=== PATIENT | female | born 2000 ===

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

== ENCOUNTER 2021-02-05 11:39 | Inpatient (IN) ==
[2021-02-05] MEDS ORDERED: ONDANSETRON 4 MG/2 ML VIAL IV PRN ×2 (12:07→20:29)
[2021-02-05] MEDS ORDERED: LACTATED RINGERS 500 ML IV PRN (12:07)
[2021-02-05] MEDS ORDERED: LACTATED RINGERS 1,000 ML IV SCH (12:30)
[2021-02-05 12:45] LABS: Basophils % 0.4 % (0.0-0.8); Eosinophils # 0.1 10*3/uL (0.0-0.87); Eosinophils % 1.2 % (0.00-10.9); Hemoglobin 11.3 GM/DL (12.0-16.0); Immature Granulocytes % 0.4 %; Immature Granulocytes Absolute 0.02 #; Lymphocytes # 1.3 10*3/uL (1.4-4.0); Lymphocytes % 26.8 % (21.3-54.2); Mean Corpuscular HGB Conc 33.2 GM/DL (32-36); Mean Corpuscular Volume 85.4 FL (87-102); Mean Platelet Volume 12.2 FL (9.6-12.0); Monocytes % 9.1 % (1.7-12.7); Neutrophils % 62.1 % (38.7-73.9); Platelet Count 131 T/CUMM (130-400); Red Blood Count 3.98 MC/CUMM (3.8-5.5); Red Cell Distribution Width 14.5 % (9.3-17.3); White Blood Count 4.9 T/CUMM (4-12)
[2021-02-05 13:06] LABS: Alanine Aminotransferase 11 U/L (13-56); Albumin 2.3 G/DL (3.4-5.0); Alkaline Phosphatase 242 U/L (45-117); Aspartate Amino Transferase 15 U/L (0-37); Bilirubin,Total < 0.39 MG/DL (0.2-1.0); Blood Urea Nitrogen 8 MG/DL (7-18); Calcium 8.4 MG/DL (8.5-10.1); Carbon Dioxide 22 MMOL/L (21-32); Estimated Glom Filtration Rate 146 ML/MIN; Glucose 78 MG/DL (74-106); Osmolality,Calculated 279.1 MOS/KG (273-304); Potassium 3.7 MMOL/L (3.5-5.1); Sodium 142 MMOL/L (136-145)
[2021-02-05] MEDS ORDERED: OXYTOCIN/LR 20 UNIT/1,000 ML BAG IV SCH (14:00)
[2021-02-05] MEDS ORDERED: AMPICILLIN INJ 2,000 MG in SODIUM CHLORIDE 0.9% 100 ML IV ONE (17:15)
[2021-02-05] MEDS ORDERED: MEPERIDINE 50 MG/1 ML VIAL IV PRN (19:34)
[2021-02-05] MEDS ORDERED: OXYTOCIN/LR 20 UNIT/1,000 ML BAG IV ONE ×2 (19:46→20:29)
[2021-02-05] MEDS ORDERED: miSOPROStoL 200 MCG TABLET ONE (19:46)
[2021-02-05] MEDS ORDERED: TRANEXAMIC ACID 1,000 MG/10 ML VIAL ONE (19:46)
[2021-02-05] MEDS ORDERED: METHYLERGONOVINE 0.2 MG/1 ML AMP ONE (19:47)
[2021-02-05] MEDS ORDERED: CARBOPROST TROMETHAMINE 250 MCG/ML AMP IM ONE ×2 (19:47→20:20)
[2021-02-05] MEDS ORDERED: LIDOCAINE 1% 50 ML VIAL ONE (19:47)
[2021-02-05 20:24] LABS: Cord Venous Blood HCO3 21.7 MMOL/L; Cord Venous Blood PCO2 36.8 MMHG; Cord Venous Blood PO2 27.1
[2021-02-05] MEDS ORDERED: DIPH/TET/ACEL PERT BOOSTER VACCINE 0.5 ML VIAL IM ONE (20:29)
[2021-02-05] MEDS ORDERED: LANOLIN 50% CREAM 0.3 OZ TUBE TOP PRN (20:29)
[2021-02-05] MEDS ORDERED: RHO(D) IMMUNE GLOBULIN 300 MCG SYRINGE IM ONE (20:29)
[2021-02-05] MEDS ORDERED: IBUPROFEN 800 MG TABLET PO PRN (20:29)
[2021-02-05] MEDS ORDERED: BISACODYL 10 MG SUPP RECTAL PRN (20:29)
[2021-02-05] MEDS ORDERED: WITCH HAZEL PADS 100/JAR TOP PRN (20:29)
[2021-02-05] MEDS ORDERED: oxyCODONE/ACETAMINOPHEN 5-325 MG TABLET PO PRN ×2 (20:29)
[2021-02-05] MEDS ORDERED: BENZOCAINE 20%/MENTHOL 0.5% SPRAY 56 GM CAN TOP PRN (20:29)
[2021-02-05] MEDS ORDERED: HYDROCORTISONE 2.5% RECTAL CREAM 30 GM TUBE TOP PRN (20:29)
[2021-02-05] MEDS ORDERED: ACETAMINOPHEN 325 MG TABLET PO PRN (20:29)
[2021-02-05] MEDS ORDERED: MEASLES/MUMPS/RUBELLA VACCINE 0.5 ML VIAL SUBCUT ONE (20:29)
[2021-02-05] MEDS ORDERED: AMPICILLIN INJ 1,000 MG in SODIUM CHLORIDE 0.9% 100 ML IV SCH (21:15)
[2021-02-06 05:02] LABS: Basophils % 0.2 % (0.0-0.8); Eosinophils % 0.1 % (0.00-10.9); Hematocrit 33.4 VOL% (35.7-47.0); Hemoglobin 10.7 GM/DL (12.0-16.0); Immature Granulocytes % 0.5 %; Immature Granulocytes Absolute 0.06 #; Lymphocytes # 1.5 10*3/uL (1.4-4.0); Lymphocytes % 11.5 % (21.3-54.2); Mean Corpuscular Volume 87.2 FL (87-102); Mean Platelet Volume 12.7 FL (9.6-12.0); Neutrophils % 83.7 % (38.7-73.9); Platelet Count 137 T/CUMM (130-400); Red Blood Count 3.83 MC/CUMM (3.8-5.5); Red Cell Distribution Width 14.5 % (9.3-17.3)
[2021-02-06] MEDS: DOCUSATE SODIUM 100 MG CAPSULE PO SCH ×2 (09:03→20:15)
[2021-02-07] MEDS: DOCUSATE SODIUM 100 MG CAPSULE PO SCH (09:10)
[2021-02-07 11:24] VITALS: BP 115/71
== END 2021-02-07 12:45 | disposition home or self-care (01) | DRG 560 ==
LOC: N.LDOUT 11:39 → N.LD 11:44 → N.OB 22:59
PROVIDERS: ADMIT Obstetrics & Gynecology; ATTEND Obstetrics & Gynecology